=== PATIENT | male | born 1990 | race Caucasian/White ===

== ENCOUNTER → 2016-12-11 | Outpatient (CLI) | payer BC, OTHER ==
[~2016-12-11] MED LIST: CGN5 PO; CLC100 PO; CLON0.5T3 PO; CLZ100 PO; HLD5 PO; MODA100T17 PO
[2016-12-11 09:47] LABS: CHOLESTEROL/HDL RATIO 6.1
== END | disposition home or self-care (01) ==
LOC: C.LAB1850 06:58
PROVIDERS: ATTEND Psychiatry & Neurology Child & Adolescent Psychiatry
DX: F20.9 Schizophrenia, unspecified (principal)

== ENCOUNTER → 2017-04-27 | Outpatient (CLI) | payer OTHER ==
[2017-04-27 09:34] LABS: COMPLETE YES; HEMATOCRIT 43.9 % (42-52); IG% 0.8 %; LYMPH ABS # 1.73 K/uL (1.2-3.4); MEAN CELL VOLUME 85.7 fL (80-100); MEAN CORPUSCULAR HEMOGLOBIN 28.7 pg (25-34); MEAN CORPUSCULAR HGB CONC 33.5 g/dl (32-36); MEAN PLATELET VOLUME 10.4 fL (7.4-10.4); MONO % 13.7 %; NEUT % 64.5 %; PLATELET COUNT 142 K/uL (130-400); RED BLOOD COUNT 5.12 M/uL (4.7-6.1); WHITE BLOOD COUNT 8.25 K/uL (4.8-10.8)
[2017-04-27 10:03] LABS: FERRITIN 44.6 ng/ml (8.0-388.0); THYROID STIMULATING HORMONE 2.84 uIu/ml (0.300-4.500)
== END | disposition home or self-care (01) ==
LOC: C.LAB1850 07:07
PROVIDERS: ATTEND Psychiatry & Neurology Child & Adolescent Psychiatry
DX: F20.9 Schizophrenia, unspecified (principal)